=== PATIENT | male | born 1970 | race Caucasian/White ===

== ENCOUNTER 2019-08-25 21:18 | Observation (INO) ==
[2019-08-25 21:33] LABS: Hematocrit 40.5 % (37.5-50.1); Hemoglobin 13.7 g/dL (12.9-16.9); Mean Corpuscular HGB Conc 33.8 g/dL (31.6-35.5); Mean Corpuscular Hemoglobin 31.1 pg (28.0-33.3); Mean Corpuscular Volume 91.8 fL (83.0-100.0); Mean Platelet Volume 8.4 fL (9.4-12.4); Platelet Count 164 K/mcL (140-400); Red Blood Count 4.41 M/mcL (4.19-5.50); Red Cell Distribution Width 12.5 % (11.5-14.5); White Blood Count 6.6 K/mcL (4.3-11.1)
[2019-08-25 21:37] LABS: Prothrombin Time 11.2 Seconds (9.4-12.1)
[2019-08-25 21:40] LABS: Activated Partial Thrombo Time 26.1 Seconds (26.0-36.0)
[2019-08-25 21:55] LABS: BUN/Creatinine Ratio 10 (6-26); Blood Urea Nitrogen 11 mg/dL (6-20); Calcium 9.3 mg/dL (8.6-10.3); Carbon Dioxide 30 mEq/L (23-29); Chloride 94 mEq/L (98-107); Ethanol 74 mg/dL (Less than 10); Glucose 161 mg/dL (70-105); Osmolality,Calculated 277 (280-300); Potassium 3.3 mEq/L (3.5-5.1); Sodium 132 mEq/L (136-145); Troponin I < 0.03 ng/mL (< 0.04); eGFR For African Americans > 60 (> 60); eGFR For Non-African Americans > 60 (> 60)
[2019-08-25] MEDS ORDERED: Isovue-370 500 ML BOTTLE IVP ONE (21:59)
[2019-08-25 22:06] LABS: Acetaminophen < 10 mcg/mL (10-20); Salicylate < 2.5 mg/dL (15.0-30.0)
[2019-08-25] MEDS ORDERED: Dexamethasone 4 MG/ML VIAL IVP ONE (22:06)
[2019-08-25] MEDS ORDERED: Aspirin 325 MG TABLET PO ONE (22:13)
[2019-08-25] MEDS ORDERED: Potassium Chloride Elixir 20 MEQ/15 ML UDC PO ONE (22:50)
[2019-08-26] MEDS ORDERED: Naloxone 0.4 MG/ML INJ IVP PRN (00:54)
[2019-08-26] MEDS ORDERED: traZODone 50 MG TABLET PO PRN (00:59)
[2019-08-26 01:29] LABS: Hematocrit 44.2 % (37.5-50.1); Mean Corpuscular HGB Conc 33.9 g/dL (31.6-35.5); Mean Corpuscular Hemoglobin 31.1 pg (28.0-33.3); Mean Corpuscular Volume 91.5 fL (83.0-100.0); Mean Platelet Volume 8.9 fL (9.4-12.4); Platelet Count 215 K/mcL (140-400); Red Blood Count 4.83 M/mcL (4.19-5.50); Red Cell Distribution Width 12.6 % (11.5-14.5); White Blood Count 6.6 K/mcL (4.3-11.1)
[2019-08-26] MEDS: Gabapentin 400 MG CAPSULE PO SCH ×5 (01:38→21:26)
[2019-08-26] MEDS: rOPINIRole 0.25 MG TABLET PO SCH ×2 (01:39→21:26)
[2019-08-26 01:48] LABS: BUN/Creatinine Ratio 14 (6-26); Blood Urea Nitrogen 13 mg/dL (6-20); Calcium 9.9 mg/dL (8.6-10.3); Carbon Dioxide 28 mEq/L (23-29); Chloride 96 mEq/L (98-107); Glucose 224 mg/dL (70-105); Osmolality,Calculated 283 (280-300); Sodium 133 mEq/L (136-145); eGFR For African Americans > 60 (> 60); eGFR For Non-African Americans > 60 (> 60)
[2019-08-26 03:04] LABS: Amphetamine Screen,Urine Negative ng/mL (Cutoff=1000); Barbiturate Screen,Urine Negative ng/mL (Cutoff=200); Benzodiazepines Screen,Urine Negative ng/mL (Cutoff=200); Cannabinoid Screen,Urine Negative ng/mL (Cutoff = 50); Cocaine Screen,Urine Negative ng/mL (Cutoff= 300); Opiate Screen,Urine Negative ng/mL (Cutoff=300); Phencyclidine Screen,Urine Negative ng/mL (Cutoff=25)
[2019-08-26] MEDS: Folic Acid 1 MG TABLET PO SCH (08:44)
[2019-08-26] MEDS: Thiamine (B-1) 100 MG TABLET PO SCH (08:44)
[2019-08-26] MEDS ORDERED: Gabapentin 400 MG CAPSULE PO SCH (09:00)
[2019-08-26] MEDS ORDERED: Aspirin Enteric Coated 81 MG Tablet PO SCH (09:00)
[2019-08-26 09:01] LABS: BUN/Creatinine Ratio 17 (6-26); Blood Urea Nitrogen 15 mg/dL (6-20); Calcium 10.1 mg/dL (8.6-10.3); Carbon Dioxide 28 mEq/L (23-29); Chloride 100 mEq/L (98-107); Glucose 198 mg/dL (70-105); Osmolality,Calculated 288 (280-300); Potassium 4.4 mEq/L (3.5-5.1); Sodium 136 mEq/L (136-145); eGFR For African Americans > 60 (> 60); eGFR For Non-African Americans > 60 (> 60)
[2019-08-26] MEDS ORDERED: diazePAM 10 MG/2 ML SYRINGE IVP PRN (10:47)
[2019-08-26] MEDS ORDERED: *HR* LORazepam 2 MG/ML VIAL IVP PRN ×3 (10:47→10:50)
[2019-08-26] MEDS ORDERED: Acetaminophen 325 MG TABLET PO PRN (11:14)
[2019-08-26] MEDS: Vitamin B Complex/Vit C/Vit E 1 EACH TABLET PO SCH (11:16)
[2019-08-26] MEDS: Verapamil ER (24 HR) 240 MG TABLET.ER PO SCH (11:16)
[2019-08-26 11:19] LABS: Estimated Average Glucose 143 mg/dl
[2019-08-26] MEDS ORDERED: rOPINIRole 0.25 MG TABLET PO SCH (21:00)
[2019-08-27 03:01] LABS: Basophils % 0.2 %; Eosinophils % 0.1 %; Hematocrit 39.4 % (37.5-50.1); Immature Granulocytes % 0.4 % (0-4); Lymphocytes # 1.5 K/mcL (0.6-4.6); Lymphocytes % 13.2 %; Mean Corpuscular HGB Conc 33.2 g/dL (31.6-35.5); Mean Corpuscular Hemoglobin 30.9 pg (28.0-33.3); Mean Corpuscular Volume 92.9 fL (83.0-100.0); Mean Platelet Volume 9.1 fL (9.4-12.4); Monocytes # 0.9 K/mcL (0.0-1.3); Monocytes % 7.5 %; Neutrophils # 8.9 K/mcL (1.6-8.9); Platelet Count 198 K/mcL (140-400); Red Blood Count 4.24 M/mcL (4.19-5.50); Red Cell Distribution Width 13.1 % (11.5-14.5); Segmented Neutrophils % 78.6 %
[2019-08-27 03:02] LABS: Hemoglobin 13.1 g/dL (12.9-16.9); White Blood Count 11.3 K/mcL (4.3-11.1)
[2019-08-27 03:19] LABS: BUN/Creatinine Ratio 22 (6-26); Blood Urea Nitrogen 22 mg/dL (6-20); Calcium 9.7 mg/dL (8.6-10.3); Carbon Dioxide 28 mEq/L (23-29); Chloride 100 mEq/L (98-107); Glucose 159 mg/dL (70-105); Osmolality,Calculated 289 (280-300); Potassium 4.2 mEq/L (3.5-5.1); Sodium 136 mEq/L (136-145); eGFR For African Americans > 60 (> 60); eGFR For Non-African Americans > 60 (> 60)
[2019-08-27 06:49] VITALS: BP 131/90
[2019-08-27] MEDS: Gabapentin 400 MG CAPSULE PO SCH (09:06)
[2019-08-27] MEDS: Thiamine (B-1) 100 MG TABLET PO SCH (09:06)
[2019-08-27] MEDS: Vitamin B Complex/Vit C/Vit E 1 EACH TABLET PO SCH (09:06)
[2019-08-27] MEDS: Verapamil ER (24 HR) 240 MG TABLET.ER PO SCH (09:07)
[2019-08-27] MEDS: Folic Acid 1 MG TABLET PO SCH (09:07)
== END 2019-08-27 10:54 | disposition left against medical advice (07) ==
LOC: 3BNU 21:18 → EMEROOARM 21:18 → SUATTDRO 23:22 → 3BNU 23:59
PROVIDERS: ADMIT Internal Medicine; ATTEND Student in an Organized Health Care Education/Training Program